=== PATIENT | female | born 1965 | race Caucasian/White ===

== ENCOUNTER 2021-04-30 07:50 | Outpatient (CLI) | payer BC | END 2021-04-30 07:51 | disposition home or self-care (01) | LOC: CSHMAMMO 07:50 | PROVIDERS: ATTEND Obstetrics & Gynecology | DX: Z12.31 Encounter for screening mammogram for malignant neoplasm of breast (principal) | CPT/HCPCS: 77063; 77067 ==

== ENCOUNTER 2023-06-21 08:38 | Outpatient (CLI) | payer BC | END 2023-06-21 08:39 | disposition home or self-care (01) | LOC: CSHMAMMO 08:38 | PROVIDERS: ATTEND Obstetrics & Gynecology | DX: Z12.31 Encounter for screening mammogram for malignant neoplasm of breast (principal); R92.1 Mammographic calcification found on diagnostic imaging of breast | CPT/HCPCS: 77063; 77067 ==

== ENCOUNTER 2023-06-28 12:49 | Outpatient (CLI) | payer BC | END 2023-06-28 12:50 | disposition home or self-care (01) | LOC: CSHMAMMO 12:49 | PROVIDERS: ATTEND Obstetrics & Gynecology | DX: R92.1 Mammographic calcification found on diagnostic imaging of breast (principal) | CPT/HCPCS: G0279 ==

== ENCOUNTER 2023-06-29 07:12 | Outpatient (CLI) | payer BC ==
[2023-06-29] MEDS ORDERED: Iopamidol 300 61% 100 ML VIAL FS ONE (09:49)
== END 2023-06-29 07:13 | disposition home or self-care (01) ==
LOC: CSHCT 07:12
PROVIDERS: ATTEND Physician Assistant Medical
DX: K57.92 Diverticulitis of intestine, part unspecified, without perforation or abscess without bleeding (principal); K57.32 Diverticulitis of large intestine without perforation or abscess without bleeding; D49.59 Neoplasm of unspecified behavior of other genitourinary organ
CPT/HCPCS: 74177

== ENCOUNTER 2023-08-15 12:18 | Outpatient (CLI) | payer BC | END 2023-08-15 12:19 | disposition home or self-care (01) | LOC: CSHLAB 12:18 | PROVIDERS: ATTEND Surgery | DX: Z01.818 Encounter for other preprocedural examination (principal); D05.11 Intraductal carcinoma in situ of right breast | CPT/HCPCS: 93005; 93010 ==

== ENCOUNTER 2023-08-18 07:00 | Day surgery (SDC) | payer BC ==
[2023-08-15 13:11] VITALS: BMI 27.8
[2023-08-15 13:58] LABS: Hematocrit 36.7 % (34.9-44.5); Hemoglobin 12.6 g/dL (12.0-15.5); Mean Corpuscular HGB CONC 34.3 g/dL (32.0-36.0); Mean Corpuscular Hemoglobin 30.6 pg (27.0-33.0); Mean Corpuscular Volume 89.1 fl (81.6-98.3); Mean Platelet Volume 10.4 fl (7.4-10.4); Platelet Count 219 10x3/uL (150-450); RBC Distribution Width 12.8 % (11.5-14.5); Red Blood Cell (RBC) Count 4.12 10x6/uL (3.90-5.03); White Blood Cell (WBC) Count 5.1 10x3/uL (3.5-10.5)
[2023-08-15 14:29] LABS: Anion Gap 12 mmol/L (10-20); BUN (Urea Nitrogen) 12 mg/dL (9.8-20.1); Calc. Creatinine Clearance 111 mL/min (70-130); Calcium 9.5 mg/dL (7.8-10.44); Carbon Dioxide 26 mmol/L (22-29); Chloride 103 mmol/L (98-107); Estimated GFR 102; Glucose 92 mg/dL (70-105); Sodium 137 mmol/L (136-145)
[~2023-08-18 07:00] MED LIST: Bupivacaine PF 0.5% 30 ML VIAL ONE; CEFAZOLIN 2 GM VIAL ONE; EPINEPHrine 1 MG/ML VIAL ONE
[2023-08-18] MEDS ORDERED: CeleCOXIB 100 MG CAP ONE (07:43)
[2023-08-18] MEDS ORDERED: Gabapentin 300 MG CAP ONE (07:44)
[2023-08-18] MEDS ORDERED: Famotidine/PF 20 mg/2ml Vial ONE (07:48)
[2023-08-18] MEDS ORDERED: Dexamethasone 4 mg/ml Vial ONE (08:27)
[2023-08-18] MEDS ORDERED: Ondansetron PF 4 MG/2 ML Vial ONE (08:27)
[2023-08-18] MEDS ORDERED: Lidocaine 1% PF 5 ML VIAL ONE (08:27)
[2023-08-18] MEDS ORDERED: Rocuronium Bromide 10 MG/ML (10ML VIAL) ONE (08:27)
[2023-08-18] MEDS ORDERED: PROPOFOL 40 ML ONE (08:28)
[2023-08-18] MEDS ORDERED: fentaNYL 50 mcg/mL 1 mL Vial ONE ×2 (08:28→11:31)
[2023-08-18] MEDS ORDERED: Clindamycin/D5W 600 mg/50 ml Premix Bag ONE ×2 (08:34→08:50)
[2023-08-18] MEDS ORDERED: Acetaminophen 500 MG TAB ONE (08:40)
[2023-08-18] MEDS ORDERED: EPINEPHrine 1 MG/ML AMP ONE (08:50)
[2023-08-18] MEDS ORDERED: Bupivacaine PF 0.5% 30 ML VIAL ONE (08:50)
[2023-08-18] MEDS ORDERED: PHENYLEPHRINE-NS 100 MCG/ML 10 ML SYRINGE ONE (09:05)
[2023-08-18] MEDS ORDERED: ePHEDrine Sulfate 50 MG/10 ML VIAL ONE (09:26)
[2023-08-18] MEDS ORDERED: Acetaminophen 325 MG TAB PO PRN (12:36)
[2023-08-18] MEDS ORDERED: HYDROcodone/Acetaminophen 5/325 mg Tablet PO PRN ×2 (12:36)
[2023-08-18] MEDS ORDERED: HYDROcodone/Acetaminophen 5/325 mg Tablet ONE (13:25)
== END 2023-08-18 14:05 | disposition home or self-care (01) ==
LOC: CSHSDC 07:00
PROVIDERS: ATTEND Surgery
PROC: 0UB04ZZ Excision of Right Ovary, Percutaneous Endoscopic Approach (ICD-10-PCS; principal; 2023-08-18)
PROC: 0HBT0ZZ Excision of Right Breast, Open Approach (ICD-10-PCS; principal; 2023-08-18)
PROC: 0UT54ZZ Resection of Right Fallopian Tube, Percutaneous Endoscopic Approach (ICD-10-PCS; principal; 2023-08-18)
DX: D05.11 Intraductal carcinoma in situ of right breast (principal); N83.201 Unspecified ovarian cyst, right side; N73.6 Female pelvic peritoneal adhesions (postinfective); I10 Essential (primary) hypertension; E78.5 Hyperlipidemia, unspecified; Z88.0 Allergy status to penicillin; Z79.899 Other long term (current) drug therapy; Z98.890 Other specified postprocedural states; Z87.891 Personal history of nicotine dependence
CPT/HCPCS: 19281; 36415; 76098; 80048; 85027; 86850; 86900; 86901; 88305; 88307; 88341; 88342; C1713; C9250; J0171; J0665; J1100; J2405; J2704; J3010; J3490; S0028

== ENCOUNTER 2024-02-17 09:39 | Outpatient (CLI) | payer BC | END 2024-02-17 09:40 | disposition home or self-care (01) | LOC: CSHMAMMO 09:39 | PROVIDERS: ATTEND Surgery | DX: Z08 Encounter for follow-up examination after completed treatment for malignant neoplasm (principal); Z86.000 Personal history of in-situ neoplasm of breast | CPT/HCPCS: G0279 ==

== ENCOUNTER 2024-04-16 08:05 | Outpatient (CLI) | payer BC ==
[2024-04-16] MEDS ORDERED: Iopamidol 300 61% 100 ML VIAL FS ONE (11:29)
== END 2024-04-16 08:06 | disposition home or self-care (01) ==
LOC: CSHCT 08:05
PROVIDERS: ATTEND Internal Medicine Hematology & Oncology
DX: C56.1 Malignant neoplasm of right ovary (principal)
CPT/HCPCS: 74177

== ENCOUNTER 2025-04-10 08:19 | Outpatient (CLI) | payer BC ==
[2025-04-10] MEDS ORDERED: Iopamidol 300 61% 100 ML VIAL FS ONE (10:09)
== END 2025-04-10 08:20 | disposition home or self-care (01) ==
LOC: CSHCT 08:19
PROVIDERS: ATTEND Internal Medicine Hematology & Oncology
DX: C56.1 Malignant neoplasm of right ovary (principal); D05.11 Intraductal carcinoma in situ of right breast; K42.9 Umbilical hernia without obstruction or gangrene
CPT/HCPCS: 71260; 74177